=== PATIENT | female | born 1985 | race Caucasian/White ===

== ENCOUNTER 2019-02-12 07:36 | Inpatient (IN) | payer OTHER ==
[2019-02-12] VITALS (15 sets, daily range): BP systolic 97–127; BP diastolic 54–77
[~2019-02-12] VITALS: Ht 170.2 cm; Wt 99.8 kg
[2019-02-12] MEDS ORDERED: PRENTAB9 PO (08:14)
[2019-02-12 08:57] LABS: BASO % 0.2 % (0.0-1.0); EOS % 0.3 % (0.0-3.0); HEMATOCRIT 37.2 % (36.0-47.0); HEMOGLOBIN 12.6 g/dl (12.0-15.5); LYMPH # 1.4 10^3/uL (1.5-4.5); MEAN CORPUSCULAR HEMOGLOBIN 31.2 pg (27.0-33.0); MEAN CORPUSCULAR HGB CONC 33.9 g/dl (32.0-36.5); MEAN CORPUSCULAR VOLUME 92.1 fl (80.0-96.0); MONO # 0.5 10^3/uL (0.0-0.8); PLATELET COUNT, AUTOMATED 177 10^3/uL (150-450); RED BLOOD COUNT 4.04 10^6/uL (4.00-5.40)
[2019-02-12] MEDS ORDERED: miSOPROStol 50 MCG 1/2 TAB (S0191) PO ONE ×4 (09:00→22:00)
[2019-02-12] MEDS ORDERED: miSOPROStol 50 MCG 1/2 TAB (S0191) PV ONE (14:00)
[2019-02-13] VITALS (20 sets, daily range): BP systolic 100–134; BP diastolic 55–89
[2019-02-13] MEDS ORDERED: miSOPROStol 50 MCG 1/2 TAB (S0191) PO ONE (02:30)
[2019-02-13] MEDS ORDERED: LR 1,000 ML IV SCH (09:27)
[2019-02-13] MEDS ORDERED: LACTATED RINGER'S 1000 ML IV ONE (09:30)
[2019-02-13] MEDS ORDERED: OXYTOCIN DRIP 30 UNITS in APPROPRIATE DILUENT 1 EA IV SCH ×2 (11:00→13:54)
[2019-02-13 11:31] LABS: HEMATOCRIT 38.6 % (36.0-47.0); HEMOGLOBIN 12.8 g/dl (12.0-15.5); MEAN CORPUSCULAR HEMOGLOBIN 30.3 pg (27.0-33.0); MEAN CORPUSCULAR HGB CONC 33.2 g/dl (32.0-36.5); MEAN CORPUSCULAR VOLUME 91.5 fl (80.0-96.0); PLATELET COUNT, AUTOMATED 181 10^3/uL (150-450); RED BLOOD COUNT 4.22 10^6/uL (4.00-5.40); WHITE BLOOD COUNT 12.1 10^3/uL (4.0-10.0)
[2019-02-13] MEDS ORDERED: FENTANYL 2MCG/ML ROPIVACAINE 0.2% IN 0.9% NACL 100ML IVBAG As Ordered ONE (11:34)
[2019-02-13] MEDS ORDERED: ONDANSETRON 4MG/2ML VIAL (J2405) IV PRN (12:00)
[2019-02-13] MEDS ORDERED: ePHEDrine SULFATE 25 MG/5 ML(5MG/ML) SYRINGE IV PRN (12:00)
[2019-02-13] MEDS ORDERED: REFRIGERATOR IV KEYS XX PRN (12:00)
[2019-02-13] MEDS ORDERED: FENTANYL/ROPIVACAINE/NACL BAG 100 ML EPIDURAL SCH (12:00)
[2019-02-13] MEDS ORDERED: diphenhydrAMINE INJ 50MG/ML VIAL (J1200) IV PRN (12:00)
[2019-02-13] MEDS ORDERED: EPIDURAL COMMENT XX SCH (12:00)
[2019-02-13] MEDS ORDERED: EPIDURAL/PCA KEYS XX PRN (12:00)
[2019-02-13] MEDS ORDERED: LACTATED RINGER'S 1000 ML IV PRN (12:00)
[2019-02-13] MEDS ORDERED: NALOXONE INJ 0.4 MG/1 ML VIAL (J2310) IV PRN (12:00)
[2019-02-13 13:04] LABS: CORD GAS ABE V -7.7; CORD GAS O2 SAT V 74.9 %; CORD GAS PH V 7.294 UNITS; CORD GAS PO2 V 33.9 mmHg; CORD GAS SBC V 17.8 MEQ/L; CORD GAS TCO2 V 19.2 MEQ/L
[2019-02-13 13:08] LABS: CORD GAS HCO3 A 23.3 MEQ/L; CORD GAS O2 SAT A 24.2 %; CORD GAS PCO2 A 67.7 mmHg; CORD GAS PH A 7.155 UNITS; CORD GAS PO2 A 16.1 mmHg; CORD GAS SBC A 17.1 MEQ/L; CORD GAS TCO2 A 25.4 MEQ/L
[2019-02-13] MEDS ORDERED: RHOGAM 300 MCG (1500 IU) INJ (J2790) IM SCH (14:00)
[2019-02-13] MEDS ORDERED: ACETAMINOPHEN 500 MG TAB PO PRN (14:00)
[2019-02-13] MEDS ORDERED: DIBUCAINE 1% OINTMENT 30GM TOP PRN (14:00)
[2019-02-13] MEDS ORDERED: MOM 30ML SUSPENSION UDC PO PRN (14:00)
[2019-02-13] MEDS ORDERED: IBUPROFEN 600 MG TAB PO PRN (14:00)
[2019-02-13] MEDS ORDERED: ACETAMINOPHEN TAB 650MG DOSE (2X325MG) PO PRN (14:00)
[2019-02-13] MEDS ORDERED: DOCUSATE SODIUM 100 MG CAP PO PRN (14:00)
[2019-02-13] MEDS ORDERED: OXYTOCIN INJ 10 UNITS/ML VIAL (J2590) IV ONE (14:00)
[2019-02-13] MEDS ORDERED: ANUSOL HC CREAM 30GM TOP PRN (14:00)
[2019-02-13] MEDS ORDERED: MEASLES,MUMPS,RUBELLA VACCINE INJ (MMR-II) (90707) SC SCH (14:00)
[2019-02-13] MEDS ORDERED: IBUPROFEN 800 MG TAB PO PRN (14:00)
[2019-02-13] MEDS ORDERED: METHYLERGONOVINE MALEATE 0.2 MG TAB PO PRN (14:00)
--- NOTE | 2019-02-13 16:05 | IPN ---
DATE: 02/13/2019 34-year-old, 2, para 1, at 41 weeks of gestation, was admitted for induction of labor. She has had five Cytotec with no response. She has some intermittent contractions. Her risk factors is that she has had excessive weight gain. She had a 1-hour glucose, which was abnormal with a 3-hour GTT was within normal limits. She is GBS negative. and her last baby was 3.8 kg with a midline episiotomy with a extension second-degree tear. On examination, presently no acute distress. Symphysis fundus height is 43, -3 station, still vertex posterior and about 60% effaced, 3-4 cm. Hemoglobin 12.6, hematocrit 37.2, and platelets were 177. White count was 6.0. She has had five lots of misoprostol with no response. We had a discussion regarding ongoing active management of labor and our approach would be to do an artifical rupture of membranes (AROM) to evaluate the fluid, wait an hour to see if the contractions are adequate, otherwise augment with Pitocin. The other recommendation will be to have an epidural to help in the case of shoulder dystocia and/or try and prevent a second-degree tear being that this appears to be large at 30.8 kg. The patient expressed understanding and will adopt the plan of care. We had a 20-minute discussion. All questions were answered.
[2019-02-13] MEDS ORDERED: OXYTOCIN INJ 10 UNITS/ML VIAL (J2590) As Ordered ONE (17:14)
[2019-02-14 05:39] VITALS: BP 124/65
[2019-02-14 07:33] LABS: HEMATOCRIT 35.4 % (36.0-47.0); HEMOGLOBIN 11.7 g/dl (12.0-15.5); MEAN CORPUSCULAR HEMOGLOBIN 31.5 pg (27.0-33.0); MEAN CORPUSCULAR HGB CONC 33.1 g/dl (32.0-36.5); MEAN CORPUSCULAR VOLUME 95.2 fl (80.0-96.0); PLATELET COUNT, AUTOMATED 139 10^3/uL (150-450); RED BLOOD COUNT 3.72 10^6/uL (4.00-5.40); WHITE BLOOD COUNT 11.6 10^3/uL (4.0-10.0)
[2019-02-14] MEDS: PRENATAL VITAMINS CHEWABLE TABLET PO SCH (08:28)
[2019-02-14 18:00] VITALS: BP 111/60
--- NOTE | 2019-02-14 21:26 | DN ---
DATE: 02/13/2019 DELIVERY NOTE: This lady is a 34-year-old, 2, para 1 who was admitted for induction of labor at 41 weeks of gestation. She had an AROM draining clear liquor. Contractions picked up at full dilatation with epidural in place. Delivered over intact perineum a live male , 9 pounds 6 ounces, 4250 grams, scores 9 and 9 at 1 and 5 minutes respectively. Cord around the neck times two loose. Placenta delivered spontaneously thereafter. Membranes and tissues intact. Examination of vagina and lateral posterior wall showed a large varicosity on the left inner labia and vagina which was bleeding and this was oversewn with a 2-0 and a [id number]. Uterus contracted well down on Pitocin. The patient stabilized out. The patient and baby tolerating procedure well. Arterial pH 7.15, base excess -7.0, venous pH 7.29, base excess -7.7.
[2019-02-15 05:56] VITALS: BP 106/58
[2019-02-15] MEDS ORDERED: IBUP80TA PO (07:34)
[2019-02-15] MEDS ORDERED: ACET-683 PO (07:34)
[2019-02-15] MEDS: PRENATAL VITAMINS CHEWABLE TABLET PO SCH (09:57)
== END 2019-02-15 11:50 | disposition home or self-care (01) | DRG 807 ==
LOC: M LDI 07:36 → M OBS 02-13 15:53
PROVIDERS: ADMIT Advanced Practice Midwife; ATTEND Obstetrics & Gynecology
PROC: 10E0XZZ Delivery of Products of Conception, External Approach (ICD-10-PCS; principal; 2019-02-13)
PROC: 10907ZC Drainage of Amniotic Fluid, Therapeutic from Products of Conception, Via Natural or Artificial Opening (ICD-10-PCS; 2019-02-13)
PROC: 3E0P7GC Introduction of Other Therapeutic Substance into Female Reproductive, Via Natural or Artificial Opening (ICD-10-PCS; 2019-02-13)
PROC: 0UQMXZZ Repair Vulva, External Approach (ICD-10-PCS; 2019-02-13)
DX: O48.0 Post-term pregnancy (principal); Z37.0 Single live birth; Z3A.41 41 weeks gestation of pregnancy; O69.81X0 Labor and delivery complicated by cord around neck, without compression, not applicable or unspecified; O71.89 Other specified obstetric trauma